=== PATIENT | male | born 1965 | race Caucasian/White ===

== ENCOUNTER 2017-07-17 08:56 | Day surgery (SDC) | payer BC, OTHER ==
[2017-07-17] MEDS ORDERED: NS 1,000 ML IV (10:00)
[2017-07-17] MEDS ORDERED: PROPOFOL 200 MG/20 ML VIAL As Ordered ×2 (10:17)
[2017-07-17] MEDS ORDERED: LIDOCAINE 2% INJ 100 MG/5 ML SDV (FOR ANES.) As Ordered (10:17)
== END 2017-07-17 11:16 | disposition home or self-care (01) ==
LOC: M OPP 08:56
DX: Z12.11 Encounter for screening for malignant neoplasm of colon (principal); Z80.0 Family history of malignant neoplasm of digestive organs; K64.8 Other hemorrhoids; M19.90 Unspecified osteoarthritis, unspecified site; Z85.820 Personal history of malignant melanoma of skin; Z80.1 Family history of malignant neoplasm of trachea, bronchus and lung
CPT/HCPCS: G0105

== ENCOUNTER 2018-01-30 06:12 | Day surgery (SDC) | payer BC, OTHER ==
[2018-01-30] MEDS: LR 1,000 ML IV ×2 (06:30)
[2018-01-30] MEDS ORDERED: PROPOFOL 200 MG/20 ML VIAL As Ordered ×2 (07:10)
[2018-01-30] MEDS ORDERED: LIDOCAINE 2% INJ 100 MG/5 ML SDV (FOR ANES.) As Ordered ×2 (07:11)
[2018-01-30] MEDS ORDERED: dexameTHASONE 4 MG/ML 1ML VIAL (J1100) As Ordered ×2 (07:11)
[2018-01-30] MEDS ORDERED: ONDANSETRON 4MG/2ML VIAL (J2405) As Ordered ×2 (07:11)
[2018-01-30] MEDS ORDERED: ROCURONIUM BROMIDE 50 MG/5 ML VIAL As Ordered ×4 (07:11→08:32)
[2018-01-30] MEDS ORDERED: fentaNYL 250 MCG/5 ML INJECTION (J3010) As Ordered ×2 (07:13)
[2018-01-30] MEDS ORDERED: MIDAZOLAM INJ 2 MG/2 ML VIAL (J2250) As Ordered ×2 (07:13)
[2018-01-30] MEDS: ceFAZolin SOD 1 GM in D5W MINI-BAG PLUS 50 ML IV (07:41)
[2018-01-30] MEDS: BUPIVACAINE/EPIN 0.25% 30 ML VIAL As Ordered ×2 (08:04)
[2018-01-30] MEDS ORDERED: SUGAMMADEX SODIUM 500 MG/5 ML VIAL (BRIDION) As Ordered ×2 (08:20)
[2018-01-30] MEDS ORDERED: ePHEDrine SULFATE 25 MG/5 ML(5MG/ML) SYRINGE As Ordered ×2 (08:20)
[2018-01-30] MEDS ORDERED: PHENYLephrine HCL 500 MCG/5 ML (100MCG/ML) SYRINGE (J2370) As Ordered ×2 (08:20)
[2018-01-30] MEDS ORDERED: KETOROLAC 60 MG/2 ML VIAL (J1885) As Ordered ×2 (08:21)
[2018-01-30] MEDS ORDERED: LR 1,000 ML IV ×4 (09:45)
[2018-01-30] MEDS ORDERED: ONDANSETRON 4MG/2ML VIAL (J2405) IV ×4 (09:45→10:00)
[2018-01-30] MEDS ORDERED: HYDROMORPHONE HCL 0.5 MG/ 0.5 ML SYRINGE (J1170 PER 1) IV ×2 (09:45)
[2018-01-30] MEDS ORDERED: fentaNYL 100 MCG/2 ML INJECTION (J3010) IV ×2 (09:45)
[2018-01-30] MEDS ORDERED: METOCLOPRAMIDE INJ 10MG/2ML VIAL (J2765) IV ×2 (09:45)
[2018-01-30] MEDS: PERCOCET 5MG/325MG TAB PO ×2 (09:50)
[2018-01-30] MEDS ORDERED: MORPHINE 2 MG/ML 1ML SYRINGE (J2270) IV ×2 (10:00)
[2018-01-30] MEDS ORDERED: NORCO, ANEXSIA 5/325MG TABLET (HYDROcodone/ACETAMINOPHEN) PO ×2 (10:00)
== END 2018-01-30 11:40 | disposition home or self-care (01) ==
LOC: M SDC 06:12
DX: K40.90 Unilateral inguinal hernia, without obstruction or gangrene, not specified as recurrent (principal)
CPT/HCPCS: 49650

== ENCOUNTER 2018-03-31 09:11 | Emergency (ER) | payer OTHER, BC ==
[~2018-03-31] VITALS: Ht 180.3 cm; Wt 75.0 kg
[2018-03-31 09:11] VITALS: BP 142/97
[~2018-03-31 09:11] MED LIST: IBUP-1114 PO; MENSCAP2 PO
[2018-03-31] MEDS ORDERED: AMOX500C PO (10:12)
[2018-03-31] MEDS ORDERED: IBUP-1022 PO (10:12)
== END 2018-03-31 10:19 | disposition home or self-care (01) ==
LOC: M ED 09:11
DX: S02.5XXA Fracture of tooth (traumatic), initial encounter for closed fracture (principal); W22.09XA Striking against other stationary object, initial encounter; W19.XXXA Unspecified fall, initial encounter

== ENCOUNTER 2019-05-01 18:22 | Day surgery (SDC) | payer BC, OTHER ==
[~2019-05-01] VITALS: Ht 180.3 cm; Wt 72.9 kg
[~2019-05-01 18:22] MED LIST changes: +AMOX500C PO; +IBUP-1022 PO
[2019-05-01] MEDS ORDERED: NS 1,000 ML IV SCH (18:43)
[2019-05-01 19:07] LABS: BASO # 0.1 10^3/uL (0.0-0.2); BASO % 0.4 % (0.0-1.0); HEMATOCRIT 38.7 % (42.0-52.0); HEMOGLOBIN 12.7 g/dl (13.5-17.5); LYMPH # 1.9 10^3/uL (1.5-5.0); LYMPH % 13.5 % (24.0-44.0); MEAN CORPUSCULAR HEMOGLOBIN 29.3 pg (27.0-33.0); MEAN CORPUSCULAR HGB CONC 32.8 g/dl (32.0-36.5); MEAN CORPUSCULAR VOLUME 89.2 fl (80.0-96.0); MONO # 1.3 10^3/uL (0.0-0.8); MONO % 9.4 % (0.0-5.0); NEUTROPHILS # 10.7 10^3/uL (1.5-8.5); NEUTROPHILS % 76.2 % (36.0-66.0); PLATELET COUNT, AUTOMATED 334 10^3/uL (150-450); RED BLOOD COUNT 4.34 10^6/uL (4.30-6.10); WHITE BLOOD COUNT 14.1 10^3/uL (4.0-10.0)
[2019-05-01 19:19] LABS: INR 1.23; PROTHROMBIN TIME 15.2 SECONDS (11.8-14.0)
[2019-05-01] MEDS ORDERED: PIPERACILLIN/TAZOBACTAM SOD 3.375 GM in D5W MINI-BAG PLUS 50 ML IV ONE (19:30)
[2019-05-01] MEDS ORDERED: ISOVUE-370 76% 100ML VIAL (Q9967) As Ordered ONE (19:31)
[2019-05-01 19:36] LABS: ALBUMIN 3.6 GM/DL (3.2-5.2); BILIRUBIN,DIRECT 0.3 MG/DL (0.0-0.2); TOTAL PROTEIN 7.2 GM/DL (6.4-8.2)
[2019-05-01] MEDS ORDERED: ACETAMINOPHEN TAB 650MG DOSE (2X325MG) PO ONE (19:45)
[2019-05-01] MEDS ORDERED: AMOX500C PO (20:03)
[2019-05-01] MEDS ORDERED: BUPIVACAINE/EPIN 0.25% 30 ML VIAL As Ordered ONE (21:50)
[2019-05-01] MEDS ORDERED: fentaNYL 250 MCG/5 ML INJECTION (J3010) As Ordered ONE (22:20)
[2019-05-01] MEDS ORDERED: MIDAZOLAM INJ 2 MG/2 ML VIAL (J2250) As Ordered ONE (22:20)
[2019-05-01] MEDS ORDERED: LIDOCAINE 2% INJ 100 MG/5 ML SDV (FOR ANES.) As Ordered ONE (22:20)
[2019-05-01] MEDS ORDERED: ROCURONIUM BROMIDE 50 MG/5 ML VIAL As Ordered ONE (22:20)
[2019-05-01] MEDS ORDERED: KETOROLAC 60 MG/2 ML VIAL (J1885) As Ordered ONE (22:20)
[2019-05-01] MEDS ORDERED: propofoL 200 MG/20 ML VIAL As Ordered ONE (22:20)
[2019-05-01] MEDS ORDERED: dexameTHASONE 4 MG/ML 1ML VIAL (J1100) As Ordered ONE (22:20)
[2019-05-01] MEDS ORDERED: ONDANSETRON 4MG/2ML VIAL (J2405) As Ordered ONE (22:20)
[2019-05-01] MEDS ORDERED: PHENYLephrine HCL 500 MCG/5 ML (100MCG/ML) SYRINGE (J2370) As Ordered ONE ×2 (22:24→22:53)
[2019-05-01] MEDS ORDERED: CIPROFLOXACIN/D5W 400 MG/200 ML BAG (J0744) As Ordered ONE (22:24)
[2019-05-01] MEDS ORDERED: metroNIDAZOLE/NACL 500MG(5MG/ML)100 ML BAG (S0030) As Ordered ONE (22:25)
[2019-05-01] MEDS ORDERED: SUGAMMADEX SODIUM 500 MG/5 ML VIAL (BRIDION) As Ordered ONE (22:45)
[2019-05-01] MEDS ORDERED: MORPHINE 2 MG/ML 1ML VIAL (J2270) IV PRN ×2 (23:15)
[2019-05-01] MEDS ORDERED: ONDANSETRON 4MG/2ML VIAL (J2405) IV PRN ×2 (23:15→23:30)
[2019-05-01] MEDS ORDERED: NORCO, ANEXSIA 5/325MG TABLET (HYDROcodone/ACETAMINOPHEN) PO PRN ×2 (23:15)
[2019-05-01] MEDS ORDERED: LR 1,000 ML IV SCH (23:30)
[2019-05-01] MEDS ORDERED: KETOROLAC 30 MG/ML VIAL (J1885) IV PRN (23:30)
[2019-05-01] MEDS ORDERED: PERCOCET 5MG/325MG TAB PO PRN (23:30)
[2019-05-01] MEDS ORDERED: fentaNYL 100 MCG/2 ML INJECTION (J3010) IV PRN (23:30)
[2019-05-01] MEDS ORDERED: METOCLOPRAMIDE INJ 10MG/2ML VIAL (J2765) IV PRN (23:30)
[2019-05-02] VITALS (8 sets, daily range): BP systolic 95–105; BP diastolic 53–63
[2019-05-02] MEDS: NS 1,000 ML IV SCH ×2 (00:07→09:08)
[2019-05-02] MEDS: KETOROLAC 30 MG/ML VIAL (J1885) IV SCH ×2 (04:26→10:36)
[2019-05-02] MEDS ORDERED: metroNIDAZOLE 500 MG in IV 1 EA IV SCH (08:00)
[2019-05-02] MEDS ORDERED: CIPROFLOXACIN 400 MG in IV 1 EA IV SCH (11:00)
--- NOTE | 2019-05-02 14:27 | RO ---
DATE OF PROCEDURE: 05/01/2019 PREOPERATIVE DIAGNOSIS: Acute appendicitis. POSTOPERATIVE DIAGNOSIS: Acute appendicitis. PROCEDURE: Laparoscopic appendectomy. 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 ESTIMATED BLOOD LOSS (EBL): Minimal. FLUIDS: Crystalloid. DESCRIPTION OF PROCEDURE: Brief procedure summary; The patient was brought to the operating room was given general anesthesia. After adequate anesthesia and preoperative antibiotics were given, the patient was prepped and draped in the usual sterile fashion. Next, a supraumbilical incision was made with skin knife. Blunt dissection was carried down to fascia. Fascia was entered with Veress needle, insufflated to 15 mm pressure. Dilating 12 mm trocar was placed at this time, and under direct visualization suprapubic left lower trocars were placed. There was some omentum adherent to the anterior abdominal wall in the right lower quadrant. This was a new inflammatory response, which most of this came down relatively well, but there was still some oozing along this omentum that was covering up the appendix and the cecum in this area. Next, the appendix was dilated at its tip, and it was grasped at its mesentery. Mesentery was transected using a Harmonic scalpel, and the base of the appendix was transected using a CAL stapler. This was placed in an EndoCatch bag, brought out through the umbilicus. The abdomen was copiously irrigated until clear. All trocars removed under direct visualization. #0 Vicryl was used to close the fascia at the umbilicus, and all incisions were closed with #4-0 Vicryl. Steri-Strips and a dry sterile dressing were applied. The patient was awakened, extubated, brought to recovery room awake, alert, hemodynamically stable. Sponge and needle counts correct times two.
--- NOTE | 2019-05-02 14:36 | IPN ---
DATE: 05/02/2019 Subjectively, the patient is doing much better this morning. His abdominal pain is much better. He has been receiving some Toradol and that has been more than adequate for his pain control. He has not any fevers overnight and is finishing off his last antibiotic here. He has had no nausea, no vomiting and tolerating a regular diet. His abdomen is soft, mildly distended. His incisions are clean and dry without any erythema, drainage or discharge. IMPRESSION AND PLAN: The patient is status post laparoscopic appendectomy seems to be doing well. Will discharge him to home with instructions to followup in 2 weeks. I have instructed him not to do any heavy lifting or strenuous work for the next couple weeks and wound care instructions were discussed extensively with the patient as well as [id number] pain control for him after discharge. He is to return to the hospital/contact our office if he is having increasing pain, discomfort, fevers, chills.
--- NOTE | 2019-05-02 20:28 | ECGEPIP ---
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
--- NOTE | 2019-05-03 07:37 | REP ---
CT ABDOMEN AND PELVIS WITH IV CONTRAST: TECHNIQUE: Axial contrast enhanced images from the lung bases to the pubic symphysis using 100 mL Isovue 370 intravenous contrast material with multiplanar reformations. Visualized lung bases demonstrate no infiltrate. There are a few tiny hypodensities scattered throughout the liver likely representing tiny cysts or hemangiomas. The spleen is normal in size with no intrinsic abnormality. The adrenal glands are normal. The pancreas demonstrates no mass. The gallbladder is grossly unremarkable. Kidneys demonstrate no evidence of mass or hydronephrosis. There is no abdominal aortic aneurysm. There is no adenopathy. There is no free air or free fluid, or evidence of fluid collection. The patient reportedly has had a prior inguinal hernia repair. This appears to be on the right side. There are streaky densities deep to the right inguinal region within the mesenteric and omental fat. These are in the lower pelvis and extend down to the bladder. The appendix is visualized and appears mildly dilated, but the wall does not appear to be thickened. No bowel wall thickening is seen. Inflammatory changes discussed above also appear to involve the anterior abdominal wall of the right lower pelvis. No other intrapelvic abnormality is seen. IMPRESSION: There appear to be inflammatory changes involving the anterior abdominal wall at the level of the right inferior pelvis, and also involve the mesenteric and omental fat just deep to this portion of the abdominal wall. Findings are nonspecific. The adjacent appendix is visualized and is mildly prominent in size, but the wall does not appear to be thickened. Clinical correlation is required. No free air or abscess is seen. A preliminary report was provided by [facility] at the time of the exam. Electronically Signed by Pelon Restrepo MD 05/03/2019 12:02 P
== END 2019-05-02 13:35 | disposition home or self-care (01) ==
LOC: M ED 18:22 → M SDC 21:45 → M PED 21:46 → ENRESERVDT 23:20 → ENRESERVTM 23:20 → M SDC 05-02 13:35
PROVIDERS: ATTEND Surgery
DX: K35.890 Other acute appendicitis without perforation or gangrene (principal)
CPT/HCPCS: 44970; 74177; 80047; 80076; 83605; 83690; 85025; 85610; 86850; 86900; 86901; 87040; 88304; 93005; 93041; 96361; 96365; 96366; 96367; 96376; 99285; J0744; J1100; J1885; J2250; J2370; J2405; J2543; J3010; Q9967

== ENCOUNTER → 2020-08-10 | Outpatient (CLI) | payer BC, OTHER ==
--- NOTE | 2020-08-10 10:47 | REP ---
INDICATION: RLQ PAIN COMPARISON: None. TECHNIQUE: Real time gastelum scale ultrasound examination using curved array transducer. FINDINGS: Liver is normal in contour, size, and echogenicity without focal hepatic lesions identified. Pancreas is incompletely evaluated due to interposed bowel gas. The gallbladder is normal and without gallstones, wall thickening, or pericholecystic fluid. No biliary ductal dilatation is appreciated and the common bile duct measures 4 mm diameter. Right kidney is normal in reniform shape without hydronephrosis and measures 10.8 x 5.6 x 4.0 cm. No ascites in the visualized right upper quadrant. IMPRESSION: Normal limited right upper quadrant ultrasound <Electronically signed by Víctor Espinosa > 08/10/20 104
== END ==
LOC: M RAD 09:58
PROVIDERS: ATTEND Physician Assistant
DX: R10.813 Right lower quadrant abdominal tenderness (principal)

== ENCOUNTER 2022-10-18 09:16 | Day surgery (SDC) | payer BC, OTHER ==
[~2022-10-18] VITALS: Ht 180.3 cm; Wt 70.3 kg
[~2022-10-18 09:16] MED LIST changes: +NS 1,000 ML IV ONE; +THERTAB52 PO
[2022-10-18] MEDS ORDERED: propofoL 200 MG/20 ML VIAL As Ordered ONE (10:15)
[2022-10-18 10:35] VITALS: TEMP 97.5
[2022-10-18 10:58] VITALS: BP 92/66; O2SAT 95
== END 2022-10-18 10:59 | disposition home or self-care (01) ==
LOC: M OPP 09:16
PROVIDERS: ATTEND Internal Medicine Gastroenterology
DX: Z12.11 Encounter for screening for malignant neoplasm of colon (principal); Z80.0 Family history of malignant neoplasm of digestive organs; Z79.1 Long term (current) use of non-steroidal anti-inflammatories (NSAID)